=== PATIENT | male | born 1950 | race Caucasian/White ===

== ENCOUNTER 2018-08-05 15:58 | Inpatient (IN) | payer MEDICARE ==
[~2018-08-05] VITALS: Ht 177.8 cm; Wt 98.7 kg
[2018-08-05 16:18] LABS: HEMATOCRIT 39.1 % (42.0-52.0); HEMOGLOBIN 13.2 gm/dL (14.0-18.0); MCH 33.1 pg (26.0-34.0); MCHC 33.6 g/dL (28.0-37.0); MCV 98.4 fL (80.0-100.0); MPV 8.5 fl. (7.2-11.1); RBC 3.97 mil/uL (4.50-6.00); RDW-CV 15.8 % (10.5-14.5); WBC 8.5 thou/uL (4.0-11.0)
[2018-08-05 16:30] LABS: APTT 30.2 Seconds (25.0-31.3); INR 1.2; PROTIME 11.9 Seconds (9.20-11.50)
[2018-08-05 16:33] LABS: ALBUMIN 3.1 g/dL (3.4-5.0); CALCIUM 9.1 mg/dL (8.5-10.1); CREATININE 1.3 mg/dL (0.6-1.3); POTASSIUM 3.9 mmol/L (3.5-5.1); TOTAL BILIRUBIN 0.9 mg/dL (<0.1-1.0); TOTAL PROTEIN 6.9 g/dL (6.4-8.2)
[2018-08-05 16:33] LABS: POC CA IONIZED 4.5 mg/dL (4.5-5.3); POC HEMOGLOBIN 13.6 g/dL (12.0-17.0); POC POTASSIUM 3.9 mmol/L (3.5-4.9)
[2018-08-05] MEDS ORDERED: COUMADIN 5 MG TA5 M1 PO (16:41)
[2018-08-05] MEDS ORDERED: TRAZODONE HCL50 MG PO (16:42)
[2018-08-05] MEDS ORDERED: LOPRESSOR25 PO (16:42)
[2018-08-05] MEDS ORDERED: FOLIC ACID1 MG PO (16:43)
[2018-08-05] MEDS ORDERED: PROTONIX 20 MG20 M1 PO (16:44)
[2018-08-05 17:01] VITALS: BP 115/75
[2018-08-05 18:54] VITALS: BP 120/72
[2018-08-05 19:00] VITALS: BP 122/76
[2018-08-05 22:00] VITALS: BP 116/74
[2018-08-06] VITALS (7 sets, daily range): BP systolic 104–121; BP diastolic 59–68
[2018-08-06 01:05] LABS: URINE BILIRUBIN NEGATIVE (Negative); URINE BLOOD NEGATIVE (Negative); URINE CLARITY CLEAR; URINE COLOR YELLOW; URINE GLUCOSE-RANDOM NEGATIVE (Negative); URINE KETONES NEGATIVE (Negative); URINE LEUKOCYTES NEGATIVE (Negative); URINE NITRITE NEGATIVE (Negative); URINE PROTEIN NEGATIVE (Negative); URINE UROBILINOGEN 0.2 E.U./dl (0.2-1.0)
--- NOTE | 2018-08-06 05:50 | NUR ---
VITALS WNL. SEE MAR. SEE CHARTING. FALL PRECAUTIONS IN PLACE. HOURLY ROUNDING FOR SAFETY.
[2018-08-06 06:47] LABS: CHOLESTEROL 86 mg/dL (<200); HDL CHOLESTEROL 48 mg/dL (>40); LDL CHOLESTEROL 31 mg/dL (<100); SERUM ASSESSMENT Clear; TC:HDL 1.8 Ratio (Not establshd); TRIGLYCERIDE 38 mg/dL (<150); VLDL 8 mg/dL (<40)
--- NOTE | 2018-08-06 09:16 | NUR ---
ASSUMED CARE OF PT THIS AM AROUND 0715- WEBSITE OPTIMIZATION STRATEGIST IN PLACE ORDERED, TRACING SB/BBB- UPON ASSESSMENT PT NOTED TO BE RESTING IN BED- PT A&O X4- CONTINENT OF BOWEL AND BLADDER- SBA WITH TRANSFERS FOR SAFETY- LCTA, RESP EVEN AND UN-LABORED- VSS, O2 SAT 96% ON RA- ABD SOFT/ROUND/NON-TENDER, BS X4 QUADS- LAST BM REPORTED 02/05/19-GOOD PO INTAKE NOTED THIS AM WITH BREAKFAST- IV NOTED TO LEFT AC INTACT AND SL- NIH THIS AM NOTED AT 2 R/T SLIGHT LEFT FACIAL DROP AND SLURRED SPEECH- NEURO CHECKS IN PLACE WITH NO CHANGES NOTED- PT RATES CHRONIC BACK PAIN 07/27, REPOSITIONING IN PLACE AND REPORTED TO BE EFFECTIVE PER PT- CALL LIGHT AND PERSONAL BELONGINGS WITH IN REACH- HOURLY ROUNDS IN PLACE R/T SAFETY/NEEDS- ALL NEEDS MET AT THIS TIME-WCTM
--- NOTE | 2018-08-06 10:17 | NUR ---
PETROL TANKER DRIVER: MET WITH PATIENT. HE REPORTS NO NEW SYMPTOMS. TOLERATIN PO INTAKE. NEURO CONSULT IS PENDING. DISCUSSED PLAN FOR THE DAY.
--- NOTE | 2018-08-06 10:55 | NUR ---
Pt is A&O. Resides at home with his . Independent and active. No DME. No hx of HH or SNF. Goal is home at or. Following.
--- NOTE | 2018-08-06 13:34 | 2DMMODE ---
[place] [address] 2 D/M-MODE ECHOCARDIOGRAM Name: ELVIA PALM Room: [address] IN [facility]#: [id number] Admission: 08/05/18 Attend Phys: Phillip Parada Discharge: Date of : 54 Date of Service: 08/06/18 1334 Report #: [id number] THIS REPORT FOR: //name// APPROVED REPORT Study performed: 08/06/2018 11:07:43 EXAM: Comprehensive 2D, Doppler, and color-flow Echocardiogram Patient Location: In-Patient Room #: 213 Status: routine BSA: 2.16 HR: 51 bpm BP: 108/61 mmHg Rhythm: NSR Other Information Study Quality: Good Indications CVA/TIA Echo Enhancing Agent Indication: Rule out Shunt Agent(s) / Amount(s) Used: Agitated Saline 10 cc 2D Dimensions IVSd: 12.02 (7-11mm) LVOT Diam: 20.99 (18-24mm) LVDd: 62.01 mm PWd: 10.37 (7-11mm) Ascending Ao: 36.77 (22-36mm) LVDs: 36.43 (25-40mm) Aortic Root: 34.39 mm Volumes Left Atrial Volume (Systole) LA ESV Index: 59.60 mL/m2 Aortic Valve AoV Peak Emmanuel.: 1.63 m/s AO Peak Gr.: 10.57 mmHg LVOT Max P.78 mmHg AO Mean Gr.: 5.30 mmHg LVOT Mean P.13 mmHg LVOT Max V: 1.39 m/s AO V2 VTI: 31.88 cm LVOT Mean V: 0.79 m/s WENDY (VTI): 3.22 cm2 LVOT V1 VTI: 29.66 [place] [address] 2 D/M-MODE ECHOCARDIOGRAM Name: ELVIA PALM Room: [address] IN .R.#: [id number] Admission: 08/05/18 Attend Phys: Phillip Parada Discharge: Date of : 54 Date of Service: 08/06/18 1334 Report #: [id number] Mitral Valve E/A Ratio: 3.00 MV Decel. Time: 251.09 ms MV E Max Emmanuel.: 0.91 m/s MV PHT: 72.82 ms MVA (PHT): 3.02 cm2 TDI E/Lateral E': 6.07 E/Medial E': 13.00 Medial E' Emmanuel.: 0.07 m/s Lateral E' Emmanuel.: 0.15 m/s Pulmonary Valve PV Peak Emmanuel.: 0.76 m/s PV Peak Gr.: 2.33 mmHg Left Ventricle The left ventricle is normal size. There is normal LV segmental wall motion. There is normal left ventricular wall thickness. Left ventricular systolic function is normal. The left ventricular ejection fraction is within the normal range. LVEF is 55-60%. Right Ventricle The right ventricle is normal size. The right ventricular systolic function is normal. Atria Left atrium is moderately dilated. Interatrial septum is intact without evidence of ASD or PFO. The right atrium size is normal. Aortic Valve Mild aortic valve sclerosis. No aortic regurgitation is present. There is no aortic valvular stenosis. Mitral Valve There is mitral annular calcification. Trace mitral regurgitation. No evidence of mitral valve stenosis. Tricuspid Valve The tricuspid valve is normal in structure. Trace tricuspid regurgitation. Pulmonic Valve The pulmonary valve is normal in structure. [place] [address] 2 D/M-MODE ECHOCARDIOGRAM Name: ELVIA PALM Room: [address] IN [facility]#: [id number] Admission: 08/05/18 Attend Phys: Phillip Parada Discharge: Date of : 54 Date of Service: 08/06/18 1334 Report #: [id number] Great Vessels The aortic root is normal in size. IVC is normal in size and collapses >50% with inspiration. Pericardium There is no pericardial effusion. <Conclusion> The left ventricle is normal size. There is normal left ventricular wall thickness. Left ventricular systolic function is normal. The left ventricular ejection fraction is within the normal range. LVEF is 55-60%. The right ventricle is normal size. The right ventricular systolic function is normal. Left atrium is moderately dilated. The right atrium size is normal. Mild aortic valve sclerosis. No aortic regurgitation is present. There is no aortic valvular stenosis. There is mitral annular calcification. Trace mitral regurgitation. The tricuspid valve is normal in structure. IVC is normal in size and collapses >50% with inspiration. There is no pericardial effusion. There is normal LV segmental wall motion. <ELECTRONICALLY SIGNED> By: Luther Laurent MD, FACC 08/06/18 1334 1334 1334 Luther Laurent MD, FACC /INF
[2018-08-06 13:38] LABS: MAGNESIUM 1.6 mg/dL (1.8-2.4); PHOSPHORUS* 4.1 mg/dL (2.5-4.9)
--- NOTE | 2018-08-06 16:44 | EKG ---
[place] [address] ELECTROCARDIOGRAM REPORT Name: ELVIA PALM Room: [address] ADM IN M.R.#: [id number] Admission: 08/05/18 Attend Phys: Phillip Rdz, Discharge: Date of : 54 Report #: [id number] THIS REPORT FOR: //name// [facility] ED Test Date: 2018-08-05 Test Time: 17:09:40 Pat Name: ELVIA PALM Department: Room: [facility] Gender: M Sugar Reprocess Operator Head: : 1950 Requested By: Lynne Quintero Order Number: [id number] MD: Luther Laurent Measurements Intervals [place] Rate: 60 P: 96 NM: 145 QRS: 95 QRSD: 147 T: 50 QT: 524 QTc: 524 Interpretive Statements Sinus rhythm Right bundle branch block Baseline wander in lead(s) V2 No previous ECG available for comparison Electronically Signed On 08-06-2018 16:43:54 CDT by Luther Laurent [email or web address] <ELECTRONICALLY SIGNED> By: Luther Laurent MD, [facility] 08/06/18 1643 170 08 Luther Laurent MD, FACC /EPI
--- NOTE | 2018-08-06 17:03 | NUR ---
PT BYRON RESTING IN BED, AT SIDE VISITING-MANUFACTURING ANALYST IN PLACE ORDERED, TRACING SB/BBB- IV TO LEFT AC INTACT AND SL- MRI COMPLETED THIS SHIFT ORDERED WITH RESULTS CALLED TO ELIZ MATT WITH NO NEW ORDERS RECIEVIED- ECHO COMPLETED AND RESULTED WITH LVEF OF 55-60%- MG RESULTED AT 1.6 AND HAD BEEN REPLACED PER PO ELECTROLYTE PROTOCOL WITH REDRAW TO FOLLOW- TYLENOL PRN GIVEN AT 1702 R/T C/O PAIN TO RIGHT SHOULDER- SEIZURE PRECATIONS IN PLACE ORDERED- CALL LIGHT AND PERSONAL BELONGINGS WITH IN REACH- ALL NEEDS MET AT THIS TIME-WCTM
[2018-08-07 04:00] VITALS: BP 95/47
[2018-08-07 05:18] LABS: HEMATOCRIT 36.8 % (42.0-52.0); HEMOGLOBIN 12.1 gm/dL (14.0-18.0); MCH 32.5 pg (26.0-34.0); MCV 98.7 fL (80.0-100.0); MPV 8.7 fl. (7.2-11.1); RBC 3.73 mil/uL (4.50-6.00); RDW-CV 15.9 % (10.5-14.5); WBC 6.1 thou/uL (4.0-11.0)
[2018-08-07 05:29] LABS: INR 1.2; PROTIME 12.1 Seconds (9.20-11.50)
[2018-08-07 05:39] LABS: ALBUMIN 2.6 g/dL (3.4-5.0); CALCIUM 8.7 mg/dL (8.5-10.1); MAGNESIUM 1.6 mg/dL (1.8-2.4); POTASSIUM 3.8 mmol/L (3.5-5.1); TOTAL BILIRUBIN 0.9 mg/dL (<0.1-1.0); TOTAL PROTEIN 6.3 g/dL (6.4-8.2)
--- NOTE | 2018-08-07 06:25 | NUR ---
VITALS WNL. SEE MAR. SEE CHARTING. FALL PRECAUTIONS IN PLACE. HOURLY ROUNDING FOR SAFETY.
[2018-08-07 08:04] VITALS: BP 106/66
--- NOTE | 2018-08-07 09:17 | NUR ---
ASSUMED CARE OF PT THIS AM AROUND 0715- DENTAL SERVICES DIRECTOR IN PLACE ORDERED, TRACING SR/BBB- UPON ASSESSMENT PT NOTED TO BE RESTING IN BED, WATCHING TV- PT A&O X4- CONTINENT OF BOWEL AND BLADDER- SBA WITH TRANSFERS FOR SAFETY- WHEEZING NOTED TO BASES; RESP EVEN AND LABORED- VSS, O2 SAT 98% ON RA- ABD SOFT/ROUND/NON-TENDER, BS X4 QUADS- PT REPORTS LAST BM 08/06/18- IV NOTED TO LEFT AC INTACT AND SL- PT RATES PAIN 1/10 TO RIGHT SHOUDER, IMPROVED WITH REPOSITIONING- CALL LIGHT AND PERSONAL BELONGINGS WITH IN REACH- HOURLY ROUNDS IN PLACE R/T SAFETY/NEEDS- ALL NEEDS MET AT THIS TIME-WCTM
--- NOTE | 2018-08-07 09:24 | CON ---
[address] [address] CONSULTATION Name: ELVIA PALM Room: [address] IN M.R.#: [id number] Admission: 08/05/18 Attend Phys: Phillip Rdz, Discharge: Date of : 54 Report #: [id number] THIS REPORT FOR: //name// CC: Rmasey Rdz DATE OF SERVICE: 08/06/2018 NEUROLOGY CONSULTATION HISTORY OF PRESENT ILLNESS: The patient is a 67-year-old male who told me that when he was at [facility] yesterday he noticed weakness of his right leg; however, reviewing the notes from the Emergency Room it was his left face, arm and leg that were involved. The patient came home in mid-June after a 2-month stay at [facility]. The patient had an alcohol withdrawal seizure and was in a medically induced coma for 3 weeks. He had to have a PEG and trach placed. The trach was removed, but he still has a PEG tube even though he is now able to eat normally. The patient was actually in the process of getting a cardiac workup tomorrow to see if he would be able to undergo anesthesia to have the PEG tube removed. The patient had been seeing a trans router and clay press operator at [facility]. I had asked the patient why he was on warfarin and he did not know, so I spoke to his who provided the information. She stated that her was given Eliquis by the physicians at [facility] and he continued on the medication even when he was at [facility]. There were some tablets of Eliquis left so his took those home and gave them to the patient, but when they ran out the Eliquis was too expensive as were all drugs in this class. They were all several hundred dollars, so the patient was then just taking an 81 mg aspirin a day. The patient has also been seen by home health who felt that he was at risk for clot. I asked his why this was and if perhaps it was secondary to the patient being so sedentary and she said she thought it saw, so Dr. Coughlin had prescribed warfarin, but the patient had not been able to take some medication when the stroke happened. The patient states that his symptoms have improved. He states when the symptoms first began he could barely speak and now his speech is much easier to understand. He does not really feel he has weakness on one side or another. PAST MEDICAL HISTORY: Alcohol use, alcohol withdrawal seizure, hypertension and gastroesophageal reflux. PAST SURGICAL HISTORY: [place] [address] CONSULTATION Name: ELVIA PALM Room: [address] IN M.R.#: [id number] Admission: 08/05/18 Attend Phys: Phillip Rdz, Discharge: Date of : 54 Report #: [id number] MEDICATIONS: At home include metoprolol 25 mg b.i.d., trazodone 50 mg at bedtime, folic acid 1 mg daily, Pantoprazole 20 mg daily. The patient was about to begin warfarin 5 mg daily, but had not yet taken a tablet. ALLERGIES: None. PHYSICAL EXAMINATION: VITAL SIGNS: Temperature is 36.9, pulse rate 53, respiratory rate 18, blood pressure 108/61 and bedside pulse oximetry 96% on room air. NEUROLOGIC: Cranial nerves 2-12 are grossly intact with the exception of a left facial droop. The patient also has some mild slurred speech. Motor exam demonstrates symmetrical strength in all 4 extremities. Fine finger movements are symmetrical bilaterally. Toe tapping is for the most part symmetrical in the lower extremities. The patient does have a left reflex preponderance. There was no evidence of dysmetria. Gait was not tested. LABORATORY DATA: Hematology: White blood cell count 8.5, hemoglobin 13.2, hematocrit 39.1, MCV 98.4 and platelet count 146,000. INR 1.2. Urinalysis negative. Chemistry: Sodium 141, potassium 3.9, chloride 104, carbon dioxide 25, BUN 10, creatinine 1.3, GFR 55, glucose 87, calcium 9.1. Liver functions normal. Albumin 3.1. Triglycerides 38, cholesterol 86, LDL cholesterol 31 and HDL cholesterol 48. IMAGING STUDIES: CT/CTA of the head and neck demonstrate no acute process. IMPRESSION: This patient has had a stroke. I have ordered MRI head to confirm this. The patient also has an echocardiogram ordered to complete the stroke workup. Warfarin has also been ordered for the patient and he is to begin his first dose today. I have also asked for the records from [facility] as to why he was actually put on Eliquis whether this was just for stroke prevention because he was going to be so sedentary or if something else had been found. I thank you for your kind referral of the patient. Will continue to follow him with you. <ELECTRONICALLY SIGNED> By: Suze Chairez DO 08/07/18 0924 [id number] Chairez DO /nt
[2018-08-07 12:40] VITALS: BP 101/63
[2018-08-07 16:55] VITALS: BP 94/65
--- NOTE | 2018-08-07 17:42 | NUR ---
PT BYRON RESTING IN BED, WATCHING TV- SHREDDED FILLER CUTTER OPERATOR IN PLACE ORDERED, TRACING SR/BBB- IV NOTED TO LEFT AC INTACT AND SL- MG REPLACED PER PROTOCOL IV X1 THIS SHIFT- REDARW NOTED WNL AT 2.2- WORKING WITH PT/OT THIS SHIFT ORDERED, WALKING HALLWAYS AND TOLERATING WELL- CARDIO CONSULT INITIATED THIS SHIFT FOR ANTICOAG RECOMMENDATIONS- ORDERS NOTED PER CARDIO TO D/C LOVENOZ AND COUMADIN AND START XARELTO 20 DAILY WITH 1ST DOSE GIVEN THIS SHIFT- GOOD PO INTAKE NOTED WITH MEALS- PT MAKES NEEDS KNOWN- ALL NEEDS MET AT THIS TIME-WCTM
[2018-08-07 19:50] VITALS: BP 113/70
[2018-08-08] VITALS: BP 106/66
[2018-08-08 04:00] VITALS: BP 105/62
[2018-08-08 05:04] LABS: HEMATOCRIT 37.2 % (42.0-52.0); HEMOGLOBIN 12.6 gm/dL (14.0-18.0); MCH 33.2 pg (26.0-34.0); MCHC 33.8 g/dL (28.0-37.0); MCV 98.3 fL (80.0-100.0); MPV 8.8 fl. (7.2-11.1); RBC 3.79 mil/uL (4.50-6.00); RDW-CV 15.4 % (10.5-14.5); WBC 8.6 thou/uL (4.0-11.0)
[2018-08-08 05:28] LABS: INR 1.7; PROTIME 17.4 Seconds (9.20-11.50)
[2018-08-08 05:35] LABS: ALBUMIN 2.6 g/dL (3.4-5.0); CALCIUM 8.7 mg/dL (8.5-10.1); CREATININE 1.1 mg/dL (0.6-1.3); MAGNESIUM 1.8 mg/dL (1.8-2.4); POTASSIUM 4.2 mmol/L (3.5-5.1); TOTAL BILIRUBIN 1.1 mg/dL (<0.1-1.0); TOTAL PROTEIN 6.6 g/dL (6.4-8.2)
--- NOTE | 2018-08-08 05:53 | NUR ---
VITAL SIGNS STABLE. SEE MAR. SEE CHARTING. FALL PRECAUTIONS IN PLACE. HOURLY ROUNDING FOR SAFETY.
[2018-08-08 08:00] VITALS: BP 112/66
[2018-08-08] MEDS ORDERED: XARELTO20 MG PO (09:23)
[2018-08-08 11:48] VITALS: BP 108/61
--- NOTE | 2018-08-08 11:54 | NUR ---
GENERAL CLEANER SPOKE TO THE PATIENT TO DISUCSS DISCHARGE PLANNING AND HIS D/C TODAY HOME WITH . PATIENT INFORMS THAT HE WAS ON-SERVICE WITH [facility] PRIOR TO ADDMISSION, BUT DOES NOT HAVE THEIR CONTACT INFO. D/C BOX SPRING UPHOLSTERER SPOKE TO THE PATIENT'S SPOUSE AND SHE WAS ABLE TO PROVIDE CONTACT INFO FOR THE COMPANY. D/C BOX SPRING UPHOLSTERER SPOKE TO KARYN WITH INTAKE FOR [facility] TO INFORM OF THE PATIENT'S ADMISSION TO THE HOSPITAL AND OF ORDERS TO RESUME. D/C BOX SPRING UPHOLSTERER FAXED PATIENT'S FACESHEET, H&P, AND D/C SUMMARY TO [facility]. [facility] TO CONTACT THE PATIENT TO ARRANGE VISIT. CM WILL REMAIN AVIALABLE TO ASSIST AND FOLLOW NEEDED. [facility] PHONE: [phone] FAX: [phone]
[2018-08-08 12:00] VITALS: BP 95/50
--- NOTE | 2018-08-08 14:23 | NUR ---
VSS, ASSUMED CARE IN THE AM, ASSESSMENT PERFORMED AND CHARTED, FALL PRECAUTIONS IN PLACE AND CALL LIGHT IN REACH, PT IS A&O4, ON RA, UP WITH ONE TRACING SB ON THE TR, PT GOAL IS TO D/C TO HOME, PT NIH IS A 2 FACIAL, AT THIS TIME I HAVE RECIEVED D/C PAPERS, FILLED OUT D/C PAPERS, PROVITED SCRIPTS AND MED SHEETS, PT DENIES ANY QUESTIONS AT TIME OF D/C HOURLY ROUNDS COMPLETED.
== END 2018-08-08 15:33 | disposition home health service (06) | DRG 64 ==
LOC: M.ERS 15:58 → M.TBA-ER 17:50 → M.2W 17:50
PROVIDERS: Internal Medicine; Personal Emergency Response Attendant; ADMIT Family Medicine
DX: I63.9 Cerebral infarction, unspecified (principal); G93.41 Metabolic encephalopathy; G45.9 Transient cerebral ischemic attack, unspecified; I10 Essential (primary) hypertension; I48.0 Paroxysmal atrial fibrillation; K21.9 Gastro-esophageal reflux disease without esophagitis; Z82.49 Family history of ischemic heart disease and other diseases of the circulatory system; Z83.6 Family history of other diseases of the respiratory system; Z87.891 Personal history of nicotine dependence; Z81.1 Family history of alcohol abuse and dependence; Z79.899 Other long term (current) drug therapy